=== PATIENT | female | born 1980 | race Two or more races ===

== ENCOUNTER 2016-05-16 09:42 | Emergency (ER) | payer OTHER ==
[2016-05-16 09:47] VITALS: BP 126/54; PULSE 90; TEMP 98.7; BMI 25.2
[2016-05-16] MEDS ORDERED: IBUPROFEN 600 MG TABLET (FP) PO ONE ×2 (10:04→10:08)
--- NOTE | 2016-05-16 10:08 | PDOC ---
History of Present Illness - General Chief Complaint: Sore Throat Stated Complaint: THROAT PAIN Time Seen by Provider: 05/16/16 09:46 History Source: Patient Exam Limitations: No Limitations - History of Present Illness Initial Comments: 05/16/16 10:04 36-year-old female otherwise healthy presents to the emergency department with complaints of sore throat and chills since Thursday. Patient states also irritating cough secondary to throat pain but denies any difficulty breathing, productive cough, neck stiffness, headache, abdominal pain, or nausea. 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 Timing/Duration: reports: other Severity: reports: mild Associated Symptoms: reports: fever/chills, sore throat Past History - Past Medical History Allergies/Adverse Reactions: Allergies Allergy/AdvReac Type Severity Reaction Status Date / Time codeine Allergy Verified 05/16/16 09:47 Home Medications: Ambulatory Orders Azithromycin [Zithromax 250mg Tablets -] 250 mg PO UTDICT #6 tab 05/16/16 Anemia: No Asthma: No Cancer: No Cardiac Disorders: No CVA: No COPD: No CHF: No Dementia: No Diabetes: No GI Disorders: Yes (COLITIS) Disorders: No HTN: No Hypercholesterolemia: No Liver Disease: No Seizures: No Thyroid Disease: No - Reproductive History LMP Normal: Yes Is Patient Now?: No - Psycho/Social/Smoking Cessation Hx Anxiety: No Suicidal Ideation: No Smoking Status: No Smoking History: Never smoked Have you smoked in the past 12 months: No Number of Cigarettes Smoked Daily: 0 Information on smoking cessation initiated: No Hx Alcohol Use: No Drug/Substance Use Hx: No Substance Use Type: None Hx Substance Use Treatment: No Patient Lives Alone: No Lives with/in: spouse/SO Review of Systems - Review of Systems Able to Perform ROS?: Yes Constitutional: Yes: Chills HEENTM: Yes: Throat Pain Respiratory: Yes: Cough Cardiac (ROS): No: Symptoms Reported ABD/GI: No: Symptoms Reported : No: Symptoms Reported Musculoskeletal: No: Symptoms Reported Integumentary: No: Symptoms Reported Neurological: No: Headache *Physical Exam - Vital Signs Last Vital Signs Temp Pulse Resp BP Pulse Ox 98.7 F 90 18 126/54 99 05/16/16 09:45 05/16/16 09:45 05/16/16 09:45 05/16/16 09:45 05/16/16 09:45 - Physical Exam General Appearance: Yes: Nourished, Appropriately Dressed. No: Apparent Distress HEENT: positive: EOMI, BRI, Normal Voice, TMs Normal, Tonsillar Exudate (2+ erythematous tonsils bilateral). negative: Nasal Congestion, Rhinorrhea, Sinus Tenderness Neck: positive: Supple. negative: Lymphadenopathy (R), Lymphadenopathy (L) Respiratory/Chest: positive: Lungs Clear, Normal Breath Sounds. negative: Respiratory Distress, Accessory Muscle Use Cardiovascular: positive: Regular Rhythm, Regular Rate. negative: Murmur Gastrointestinal/Abdominal: positive: Soft. negative: Tenderness Integumentary: positive: Normal Color, Warm, Moist Neurologic: positive: Motor Strength 5/5 (ambulatory) Medical Decision Making - Medical Decision Making 05/16/16 10:07 Patient with sore throat for the past 2 days. Patient on exam had 2+ exudative erythematous tonsils concerning for strep. Rapid strep was collected and Motrin was ordered. 05/16/16 10:53 Although rapid strep was negative I will give patient a prescription for azithromycin due to clinical presentation. Patient also recommended to take NSAIDs for pain and fever *DC/Admit/Observation/Transfer Diagnosis at time of Disposition: Sore throat - Discharge Dispostion Disposition: HOME Condition at time of disposition: Good - Prescriptions Prescriptions: Azithromycin [Zithromax 250mg Tablets -] 250 mg PO UTDICT #6 tab - Referrals Referrals: Perfecto Medina MD, MD [Primary Care Provider] - - Patient Instructions Printed Discharge Instructions: Sore Throat Additional Instructions: Although your strep test was negative, I will give you a prescription for azithromycin secondary to physical findings seen today in the ER. I recommend that you take Motrin or Tylenol for adequate fever and pain control. Also eat soft nonabrasive foods and drink plenty of water.
== END 2016-05-16 10:59 | disposition home or self-care (01) ==
LOC: JERFT 09:42
DX: J02.9 Acute pharyngitis, unspecified (principal)
CPT/HCPCS: 87070; 87077; 87430; 99281-25

== ENCOUNTER 2017-07-17 12:02 | Emergency (ER) | payer OTHER ==
[2017-07-17 12:07] VITALS: BP 123/62; PULSE 88; TEMP 98.1; BMI 24.6
--- NOTE | 2017-07-17 13:17 | PDOC ---
History of Present Illness - General Chief Complaint: Pain Stated Complaint: LT FOOT PAIN Time Seen by Provider: 07/17/17 12:21 History Source: Patient Exam Limitations: No Limitations - History of Present Illness Initial Comments: 07/17/17 13:14 CHIEF COMPLAINT: Left foot swelling HISTORY OF PRESENT ILLNESS: 37-year-old female who denies any significant medical history currently on no medication allergic to codeine. Patient presents with left foot swelling and pain. Patient reports was wearing new shoes that were high in [place] at a concert and wore them for 2 days, day after started with swelling. Denies any direct injury. There is a blister noted to dorsum of left great toe. No erythema, no bruising. No calf pain. No chest pain or shortness of breath. 07/17/17 14:16 Occurred: reports: yesterday Severity: Yes: moderate Lower Extremity Pain Location: left: foot Lower Ext. Injury Location - Specific Injury Location Foot: left foot pain, left foot swelling Extremity Pain Location - Extremity Pain Location Extremity Pain Locations: left: foot Past History - Past Medical History Allergies/Adverse Reactions: Allergies Allergy/AdvReac Type Severity Reaction Status Date / Time codeine Allergy Verified 07/17/17 12:04 Home Medications: Ambulatory Orders Ibuprofen [Motrin -] 600 mg PO QID #20 tablet 07/17/17 Anemia: No Asthma: No Cancer: No Cardiac Disorders: No CVA: No COPD: No CHF: No DVT: No Dementia: No Diabetes: No GI Disorders: Yes (COLITIS) Disorders: No HTN: No Hypercholesterolemia: No Liver Disease: No Seizures: No Thyroid Disease: No - Suicide/Smoking/Psychosocial Hx Smoking Status: No Smoking History: Never smoked Have you smoked in the past 12 months: No Number of Cigarettes Smoked Daily: 0 Hx Alcohol Use: No Drug/Substance Use Hx: No Substance Use Type: None Hx Substance Use Treatment: No Review of Systems - Review of Systems Constitutional: No: Symptoms Reported HEENTM: No: Symptoms Reported Respiratory: No: Symptoms reported Cardiac (ROS): No: Symptoms Reported ABD/GI: No: Symptoms Reported Musculoskeletal: Yes: Other (swelling to dorsum of left foot with no erythema or bruising.) Integumentary: Yes: Other (swelling to generalized left foot). No: Bruising, Erythema Neurological: No: Symptoms reported Hematologic/Lymphatic: No: Symptoms Reported All Other Systems: Reviewed and Negative *Physical Exam - Vital Signs Last Vital Signs Temp Pulse Resp BP Pulse Ox 98.1 F 88 18 123/62 100 07/17/17 12:06 07/17/17 12:06 07/17/17 12:06 07/17/17 12:06 07/17/17 12:06 - Physical Exam General Appearance: Yes: Appropriately Dressed. No: Apparent Distress HEENT: positive: Normal ENT Inspection, Normal Voice, Symmetrical Neck: positive: Trachea midline. negative: Tender, Tender lateral, Tender midline Respiratory/Chest: positive: Lungs Clear, Normal Breath Sounds. negative: Respiratory Distress, Accessory Muscle Use Cardiovascular: positive: Regular Rhythm, Regular Rate Gastrointestinal/Abdominal: positive: Normal Bowel Sounds, Soft. negative: Tender Lymphatic: negative: Adenopathy Musculoskeletal: positive: Other (swelling to dorsum of left foot, small blister noted to medial border of left great toe.) Extremity: positive: Normal Range of Motion, Pedal Edema, Swelling, Inflammation. negative: Erythema Integumentary: positive: Normal Color, Dry, Swelling. negative: Erythema, Ecchymosis, Bruising Neurologic: positive: Alert, Normal Mood/Affect, Normal Response, Motor Strength 5/5 ED Treatment Course - ADDITIONAL ORDERS Additional order review: Laboratory Results 07/17/17 12:45 Urine HCG, Qual Negative - RADIOLOGY Radiology Studies Ordered: Category Date Time Status ANKLE & FOOT-LEFT* [RAD] Stat Radiology 07/17/17 12:32 Ordered Medical Decision Making - Medical Decision Making 07/17/17 13:17 A/P: Patient with swelling to dorsum of left foot urine sent, patient sent to x-ray. Wet read x-rays negative for acute fracture, Will place patient in surgical shoe , Prakash wrap, ice and elevate when at rest, anti-inflammatories for pain and follow-up with podiatry in 1 week if pain persists *DC/Admit/Observation/Transfer Diagnosis at time of Disposition: Foot swelling - Discharge Dispostion Disposition: HOME Condition at time of disposition: Stable Admit: No - Prescriptions Prescriptions: Ibuprofen [Motrin -] 600 mg PO QID #20 tablet - Referrals Referrals: Claudio Collins MD [Staff Physician] - - Patient Instructions Additional Instructions: Ice and elevate when at rest Prakash wrap when ambulating, surgical shoe Follow-up with orthopedics or podiatry in 1 week if pain persists - Post Discharge Activity Forms/Work/School Notes: Back to Work
== END 2017-07-17 14:41 | disposition home or self-care (01) ==
LOC: JERFT 12:02
DX: R60.0 Localized edema (principal)
CPT/HCPCS: 73610-TC-LT-FY; 73630-TC-LT; 84703; 99282-25

== ENCOUNTER 2018-11-12 09:02 | Emergency (ER) | payer OTHER ==
[2018-11-12 09:11] VITALS: TEMP 98.9; BMI 25.0
--- NOTE | 2018-11-12 09:56 | PDOC ---
History of Present Illness - General Chief Complaint: Nausea/Vomiting Stated Complaint: NAUSEA/VOMITING Time Seen by Provider: 11/12/18 09:25 - History of Present Illness Initial Comments: Erwin Guzmán is a 38yo otherwise healthy woman who presents to the ED w/ frequent vomiting and PO intolerance since yesterday. She reports that on Thursday, she did not have much of an appetite, but she was not feeling sick. She went out for one drink with friends in the evening, and she had a little bit of an upset stomach in the morning yesterday. She thought it might be from going out, so she was trying to drink extra water, but she vomited up the water. She continued to not have any appetite. She has not had any fever, diarrhea, or known sick contacts. She notes that her LMP was on 10/02/18, about 6 weeks ago, and is currently sexually active. She denies any vaginal bleeding or discharge. Past History - Past Medical History Allergies/Adverse Reactions: Allergies Allergy/AdvReac Type Severity Reaction Status Date / Time codeine Allergy Verified 11/12/18 09:11 Home Medications: Ambulatory Orders Metoclopramide HCl 10 mg PO TID PRN #21 tablet 11/12/18 No122/Iron/Folic Acid [ Multi Tablet] 1 each PO DAILY #30 tablet 11/12/18 Anemia: No Asthma: No Cancer: No Cardiac Disorders: No CVA: No COPD: No CHF: No DVT: No Dementia: No Diabetes: No GI Disorders: Yes (COLITIS) Disorders: No HTN: No Hypercholesterolemia: No Liver Disease: No Seizures: No Thyroid Disease: No - Immunization History Immunization Up to Date: Yes - Suicide/Smoking/Psychosocial Hx Smoking Status: No Smoking History: Never smoked Have you smoked in the past 12 months: No Number of Cigarettes Smoked Daily: 0 Hx Alcohol Use: Yes (OCCASIONALLY) Drug/Substance Use Hx: No Substance Use Type: None Hx Substance Use Treatment: No Review of Systems - Review of Systems Comments:: General: No fevers, no chills, no weight or appetite change, no malaise HEENT: No changes in vision, no changes in hearing, no congestion, no sore throat CV: No chest pain, no palpitations, no LE edema Pulm: No SOB, no cough, no wheezing GI: +nausea/vomiting, no change in bowel habits, no melena : No frequency, no urgency, no dysuria Musc: No back pain, no joint swelling, no recent injury Skin: No rash, no lesions, no erythema Endo: No excessive thirst, no heat/cold intolerance Heme: No unusual bruising or bleeding, no swollen glands Neuro: No syncope, no numbness/tingling, no focal weakness Vasc: No claudication Psych: No recent change in mood, no SI or HI *Physical Exam - Vital Signs Last Vital Signs Temp Pulse Resp BP Pulse Ox 98.9 F 81 16 111/73 100 11/12/18 09:08 11/12/18 09:08 11/12/18 09:08 11/12/18 09:08 11/12/18 09:08 - Physical Exam Comments: General: Comfortable, no acute distress HEENT: PERRL, EOMI, MMM, voice normal, normal neck ROM, no LAD Cards: RRR, no murmur appreciated Pulm: Comfortable on room air, clear to auscultation bilaterally Abd: Soft, nontender, nondistended Ext: Atraumatic. No LE edema. ROM intact Vasc: Extremities WWP Skin: Normal color, no rashes or lesions Neuro: A&Ox3, CN grossly intact, normal speech, motor/sensory grossly intact and symmetric Psych: Mood appropriate to situation ED Treatment Course - LABORATORY CBC & Chemistry Diagram: 11/12/18 09:42 11/12/18 09:42 - ADDITIONAL ORDERS Additional order review: Laboratory Results 11/12/18 09:30 Urine HCG, Qual Positive Medical Decision Making - Medical Decision Making 11/12/18 09:56 Erwin Guzmán is a 38yo otherwise healthy woman who presents to the ED w/ frequent vomiting and PO intolerance since yesterday; she also notes that her LMP was about 6 weeks ago. - Gastritis v gastroenteritis, pancreatitis, cholecystitis. Possible - CBC, CMP, UA, Urine preg, lipase - IVF, pepcid, zofran 11/12/18 10:03 - Urine preg positive. Pt updated - Adding bHCG - Transvaginal US to confirm IUP 11/12/18 11:53 - Labs reviewed. No concerning abnormalities. bHCG [id number] - US confirms IUP at 5w6d, HR 110 - Reasessed, feeling significantly improved after meds. Will PO challenge and d/ c home with OB follow up if able to tolerate fluids. 11/12/18 12:46 - Able to drink juice w/o nausea or vomiting - Discussed home care, return precautions, and follow up with Ms Guzmán at length. Pt states understanding and agreement and feels comfortable going home. Discussed with Dr Ally Castrejon PGY2 *DC/Admit/Observation/Transfer Diagnosis at time of Disposition: Nausea and vomiting during prior to 22 weeks gestation - Discharge Dispostion Disposition: HOME Condition at time of disposition: Stable Decision to Admit order: No - Prescriptions Prescriptions: Metoclopramide HCl 10 mg PO TID PRN #21 tablet PRN Reason: Nausea And/Or Vomiting No122/Iron/Folic Acid [ Multi Tablet] 1 each PO DAILY #30 tablet - Referrals Referrals: Nile Schaefer MD [Staff Physician] - Selma Mariano DO [Staff Physician] - Tiana Brown MD [Staff Physician] - Rashad Etienne MD [Staff Physician] - Renata Farnsworth MD [Staff Physician] - [facility] [Provider Group] - Patient Instructions Printed Discharge Instructions: DI for -- Discomforts and Remedies Additional Instructions: Discharge Instructions: You were seen in the emergency department for nausea and vomiting. You were found to be , at an estimated 5 weeks 6 days. The was confirmed with an ultrasound. Your nausea improved with a medication called reglan (metoclopramide). Home Care and Follow Up: - You may use acetaminophen (Tylenol) 650-1000mg every 6 hours as needed for pain, discomfort, or fever. DO NOT take other pain medications. - You have been prescribed reglan, a nausea medication, that may be taken every 8 hours as needed for nausea or vomiting. It is strongly recommended that you try non-medication methods of controlling nausea first, though. These include eating first thing in the morning, small frequent meals and snacks, and avoiding foods that make you feel nauseated. - You have also been prescribed vitamins. It is extremely important to start taking these every day to help the develop normally. - You will need to schedule an initial appointment with an installer. You have been provided with several names to choose from. Call within the next week to schedule your appointment. - Seek immediate medical care if you have any persistent symptoms, you have frequent vomiting, you are unable to eat or drink, you become dehydrated, you have severe abdominal pain, or you have any other medical emergency. - Post Discharge Activity
[2018-11-12 10:06] LABS: BASO % 0.7 % (0-2.0); EOS % 1.5 % (0-4.5); HEMATOCRIT 35.7 % (32.4-45.2); HEMOGLOBIN 11.6 GM/dL (10.7-15.3); LYMPH % 30.1 % (8-40); MCH 23.9 pg (25.7-33.7); MCHC 32.4 g/dl (32.0-36.0); MEAN CELL VOLUME 73.9 fl (80-96); MEAN PLT VOLUME 7.6 fl (7.5-11.1); MONO % 7.9 % (3.8-10.2); NEUT % 59.8 % (42.8-82.8); PLATELET COUNT 287 K/MM3 (134-434); RBC 4.83 M/mm3 (3.60-5.2); RDW 13.6 % (11.6-15.6); WHITE BLOOD COUNT 6.9 K/mm3 (4.0-10.0)
[2018-11-12 10:11] LABS: URINE APPEARANCE CLEAR; URINE BILIRUBIN NEGATIVE (NEGATIVE); URINE COLOR YELLOW; URINE GLUCOSE (UA) NEGATIVE (NEGATIVE); URINE KETONE 4+ (NEGATIVE); URINE LEUK ESTERASE NEGATIVE (NEGATIVE); URINE NITRITE NEGATIVE (NEGATIVE); URINE PROTEIN TRACE (NEGATIVE)
[2018-11-12] MEDS ORDERED: ACETAMINOPHEN 1000 MG/100 ML VIAL (NON FORMULARY) IVPB ONE (10:28)
[2018-11-12] MEDS ORDERED: SODIUM CHLORIDE 1,000 ML IV STA (10:28)
[2018-11-12] MEDS ORDERED: METOCLOPRAMIDE HCL INJECTION 10 MG/2 ML VIAL IVPUSH ONE (10:28)
[2018-11-12] MEDS ORDERED: FAMOTIDINE 20 MG/50 ML IVPB 20 MG/50 ML MG IVPB ONE ×2 (10:28→10:36)
--- NOTE | 2018-11-12 10:33 | PDOC ---
Attending Attestation - Resident Resident Name: UmangkiranCrystal - ED Attending Attestation I have performed the following: I have examined & evaluated the patient, The case was reviewed & discussed with the resident, I agree w/resident's findings & plan, Exceptions are as noted - HPI HPI: 11/12/18 10:29 38 year old female with no past medical history presents with nausea and vomiting and tension headache since yesterday. Yesterday morning, started to develop several episodes of nausea and vomiting, nonbloody, nonbilious. No fevers, chills or diarrhea. Stated that she has had decreased appetite. Denies vaginal discharge or vaginal bleeding. Reports intermittent abdominal cramping. Did state that after vomiting, the patient started to develop a gradual tension headache that's moderate in intensity. Not thunderclapping or worst headache of life. No numbness, weakness. - Physicial Exam PE: 11/12/18 10:31 ADULT EXAM GENERAL: Awake, alert, and fully oriented, in no acute distress HEAD: No signs of trauma EYES: EOMI, sclera anicteric, conjunctiva clear ENT: Auricles normal inspection, hearing grossly normal, nares patent, +dry mucous membranes NECK: Normal ROM, supple, no lymphadenopathy, JVD, or masses LUNGS: Breath sounds equal, clear to auscultation bilaterally. No wheezes, and no crackles HEART: Regular rate and rhythm, normal S1 and S2, no murmurs, rubs or gallops ABDOMEN: Soft, nontender, No guarding, no rebound. No masses EXTREMITIES: Normal range of motion, no edema. No clubbing or cyanosis. No cords, erythema, or tenderness NEUROLOGICAL: Cranial nerves II through XII grossly intact. Normal speech, normal gait SKIN: Warm, Dry, normal turgor, no rashes or lesions noted. - Medical Decision Making 11/12/18 10:31 Vital Signs Temp Pulse Resp BP Pulse Ox 98.9 F 81 16 111/73 100 11/12/18 09:08 11/12/18 09:08 11/12/18 09:08 11/12/18 09:08 11/12/18 09:08 Patient is urine test positive. Her LMP is October 02, and she typically is regular. I suspect that she has hyperemesis gravidarum. Has no abdominal tenderness and no vaginal bleeding. I'm less concerned for ectopic or threatened . However, will obtain beta HCG and transvaginal ultrasound for the abdominal cramping. Urine shows 4+ ketones suggesting dehydration. Will give IV fluids and antie-emetics and reassess. 11/12/18 11:33 CBC, BMP 11/12/18 09:42 11/12/18 09:42 CMP Sodium 136 mmol/L (136-145) 11/12/18 09:42 Potassium 3.4 mmol/L (3.5-5.1) L 11/12/18 09:42 Chloride 104 mmol/L (98-107) 11/12/18 09:42 Carbon Dioxide 24 mmol/L (21-32) 11/12/18 09:42 Anion Gap 8 MMOL/L (8-16) 11/12/18 09:42 BUN 8.8 mg/dL (7-18) 11/12/18 09:42 Creatinine 0.7 mg/dL (0.55-1.3) 11/12/18 09:42 Est GFR (CKD-EPI)AfAm 126.49 11/12/18 09:42 Est GFR (CKD-EPI)NonAf 109.14 11/12/18 09:42 Random Glucose 126 mg/dL (74-106) H 11/12/18 09:42 Calcium 9.6 mg/dL (8.5-10.1) 11/12/18 09:42 Total Bilirubin 1.0 mg/dL (0.2-1) 11/12/18 09:42 AST 11 U/L (15-37) L 11/12/18 09:42 ALT 16 U/L (13-61) 11/12/18 09:42 Alkaline Phosphatase 47 U/L (45-117) 11/12/18 09:42 Total Protein 7.5 g/dl (6.4-8.2) 11/12/18 09:42 Albumin 4.2 g/dl (3.4-5.0) 11/12/18 09:42 Lipase 129 U/L (73-393) 11/12/18 09:42 Beta HCG, Quant 50356.6 mIU/ml 11/12/18 09:42 Urine Test Results Urine Color Yellow 11/12/18 09:30 Urine Appearance Clear 11/12/18 09:30 Urine pH 6.0 (5.0-8.0) 11/12/18 09:30 Ur Specific [place] 1.029 (1.010-1.035) 11/12/18 09:30 Urine Protein Trace (NEGATIVE) 11/12/18 09:30 Urine Glucose (UA) Negative (NEGATIVE) 11/12/18 09:30 Urine Ketones 4+ (NEGATIVE) H 11/12/18 09:30 Urine Blood Negative (NEGATIVE) 11/12/18 09:30 Urine Nitrite Negative (NEGATIVE) 11/12/18 09:30 Urine Bilirubin Negative (NEGATIVE) 11/12/18 09:30 Ur Leukocyte Esterase Negative (NEGATIVE) 11/12/18 09:30 11/12/18 11:46 Ultrasound shows single live IUP with no complications [id number]. If pt can tolerate PO and feeling better, will d/c with anti-emetic i.e. reglan. 11/12/18 13:24 Pt also has R sided ovarian cyst but no abdominal pain. Ovarian torsion precautions given. 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
[2018-11-12] MEDS ORDERED: METOCLOPRAMIDE HCL INJECTION 10 MG/2 ML VIAL ONE (10:35)
[2018-11-12 10:36] LABS: ALBUMIN 4.2 g/dl (3.4-5.0); BLOOD UREA NITROGEN 8.8 mg/dL (7-18); CALCIUM 9.6 mg/dL (8.5-10.1); CREATININE 0.7 mg/dL (0.55-1.3); POTASSIUM 3.4 mmol/L (3.5-5.1); TOT PROT 7.5 g/dl (6.4-8.2)
[2018-11-12] MEDS ORDERED: ACETAMINOPHEN INJECTION 100 ML IVPB ONE (10:36)
[2018-11-12 12:50] VITALS: BP 105/68; PULSE 68
== END 2018-11-12 13:32 | disposition home or self-care (01) ==
LOC: JER 09:02
PROC: 3E033NZ Introduction of Analgesics, Hypnotics, Sedatives into Peripheral Vein, Percutaneous Approach (ICD-10-PCS; principal; 2018-11-12)
PROC: 3E033GC Introduction of Other Therapeutic Substance into Peripheral Vein, Percutaneous Approach (ICD-10-PCS; 2018-11-12)
PROC: 3E0337Z Introduction of Electrolytic and Water Balance Substance into Peripheral Vein, Percutaneous Approach (ICD-10-PCS; 2018-11-12)
DX: O26.891 Other specified pregnancy related conditions, first trimester (principal); R11.2 Nausea with vomiting, unspecified; Z3A.01 Less than 8 weeks gestation of pregnancy
CPT/HCPCS: 36415; 76817-TC; 80053; 81003; 83690; 84702; 84703; 85025; 87086; 96361; 96365; 96375; 99284-25; J0131; J7030

== ENCOUNTER 2018-12-11 18:38 | Emergency (ER) | payer OTHER ==
[2018-12-11 18:43] VITALS: BP 115/70; PULSE 96; TEMP 98.6; BMI 25.0
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
[2018-12-11] MEDS ORDERED: ACETAMINOPHEN 500 MG TABLET (FP) PO ONE (19:08)
[2018-12-11] MEDS ORDERED: ACETAMINOPHEN 500 MG TABLET (FP) ONE (19:15)
== END 2018-12-11 19:00 | disposition home or self-care (01) ==
LOC: JERFT 18:38
DX: O99.89 Other specified diseases and conditions complicating pregnancy, childbirth and the puerperium (principal); H60.502 Unspecified acute noninfective otitis externa, left ear; Z3A.09 9 weeks gestation of pregnancy
CPT/HCPCS: 99281-25

== ENCOUNTER 2018-12-17 22:10 | Emergency (ER) | payer OTHER ==
[2018-12-17 22:33] VITALS: BMI 25.0
--- NOTE | 2018-12-18 01:07 | PDOC ---
Documentation entered by Maris Cooley SCRIBE, acting as scribe for Anika Phillips MD. Anika Phillips MD: This documentation has been prepared by the Yasir black Xhesika, SCRIBE, under my direction and personally reviewed by me in its entirety. I confirm that the documentation accurately reflects all work, treatment, procedures, and medical decision making performed by me. Attending Attestation - Resident Resident Name: Parth Lanier - ED Attending Attestation I have performed the following: I have examined & evaluated the patient, The case was reviewed & discussed with the resident, I agree w/resident's findings & plan - HPI HPI: 12/18/18 01:04 38 YOF with current at 11 weeks, , migraines presenting with palpitations, flushing across her body, headache, x 3-4 days tylenol last night w/o effect ECHEVERRIA similar to prior ECHEVERRIA, right fronto-temporal region, worse with light and sound +nausea no f/c, vomiting no trauma. no visual or hearing changes. no neurologic changes, dizziness. - Physicial Exam PE: 12/18/18 01:06 Agree with the resident's HPI and PE as documented in the electronic medical record. NAD, well appearing, EOMI, PERRL, MMM, nl conjunctiva, anicteric; neck supple. lungs clear, RRR, abdomen soft nontender. Back nontender. CHUNG x4, no focal neuro deficits. No peripheral edema. normal color for ethnicity, WWP. - Medical Decision Making 12/18/18 01:07 See HPI for details. Prior notes reviewed, including admissions, discharges and consultations. Vital signs reviewed, wnl. initial tachycardia, but improved. Vital Signs Temp Pulse Resp BP Pulse Ox 97.9 F 97 H 18 118/62 99 12/18/18 00:00 12/18/18 00:00 12/18/18 00:00 12/18/18 00:00 12/18/18 00:00 laboratory results and imaging reviewed, basic labs and lytes wnl, LFTs/lipase_ ED course: given analgesia, IVF, reassess no imaging indicated h/o c/w prior headache/migraine no AP, VB. well being check performed anticipate discharge once improved, stable condition. 12/18/18 02:29 12/18/18 17:51
[2018-12-18] MEDS ORDERED: ACETAMINOPHEN 1000 MG/100 ML VIAL (NON FORMULARY) IVPB ONE (01:11)
[2018-12-18] MEDS ORDERED: METOCLOPRAMIDE HCL INJECTION 10 MG/2 ML VIAL IVPB ONE (01:11)
[2018-12-18] MEDS ORDERED: SODIUM CHLORIDE 1,000 ML IV STA (01:11)
[2018-12-18] MEDS ORDERED: ACETAMINOPHEN INJECTION 100 ML IVPB ONE (01:20)
[2018-12-18] MEDS ORDERED: METOCLOPRAMIDE HCL INJECTION 10 MG/2 ML VIAL ONE (01:20)
--- NOTE | 2018-12-18 01:27 | PDOC ---
History of Present Illness - General Chief Complaint: Cold Symptoms Stated Complaint: FEVER Time Seen by Provider: 12/18/18 00:10 History Source: Patient Exam Limitations: No Limitations - History of Present Illness Initial Comments: 12/18/18 01:23 38 yo F 11 weeks gestational age ([place] 07/09/2020) with a hx of migraines presents to the emergency department with headache with palpitations and sensation of heat for 4 days. Per the patient, it was gradual onset of headache that is similar to quality of her previous migraines. Per the patient, she was prescribed chronic medication therapy for the migraines but denies taking them due to not wanting to take pills. Denies trauma. Describes the pain as throbbing , right forehead, worsens with light and sound, and has associative nausea but denies vomiting. Allergies: Codeine 12/18/18 01:43 Past History - Past Medical History Allergies/Adverse Reactions: Allergies Allergy/AdvReac Type Severity Reaction Status Date / Time codeine Allergy Verified 12/17/18 22:32 Home Medications: Ambulatory Orders No122/Iron/Folic Acid [ Multi Tablet] 1 each PO DAILY #30 tablet 11/12/18 Anemia: No Asthma: No Cancer: No Cardiac Disorders: No CVA: No COPD: No CHF: No DVT: No Dementia: No Diabetes: No GI Disorders: Yes (COLITIS) Disorders: No HTN: No Hypercholesterolemia: No Liver Disease: No Seizures: No Thyroid Disease: No - Reproductive History Is Patient Now?: Yes (#): 2 Para: 1 Spontaneous : 0 - Immunization History Immunization Up to Date: Yes - Suicide/Smoking/Psychosocial Hx Smoking Status: No Smoking History: Former smoker Have you smoked in the past 12 months: No Number of Cigarettes Smoked Daily: 0 Information on smoking cessation initiated: No Hx Alcohol Use: No Drug/Substance Use Hx: No Substance Use Type: None Hx Substance Use Treatment: No *Physical Exam - Vital Signs Last Vital Signs Temp Pulse Resp BP Pulse Ox 97.9 F 97 H 18 118/62 99 12/18/18 00:00 12/18/18 00:00 12/18/18 00:00 12/18/18 00:00 12/18/18 00:00 ED Treatment Course - LABORATORY CBC & Chemistry Diagram: 12/18/18 01:35 12/18/18 01:35 *DC/Admit/Observation/Transfer Diagnosis at time of Disposition: Headache - Discharge Dispostion Disposition: HOME Decision to Admit order: No - Referrals Referrals: Nathalia Latif MD [Staff Physician] - - Patient Instructions Printed Discharge Instructions: Migraine -- Adult, DI for Migraine Additional Instructions: You were seen in the emergency department for the evaluation of your headache. Please follow up with your OBGYN doctor within 1 week for follow up care. Please return to the emergency department if you have worsening symptoms or new concerning symptoms such as confusion, focal neurological deficits, and visual disturbance . Thank you. - Post Discharge Activity
[2018-12-18 01:46] LABS: BASO % 0.5 % (0-2.0); EOS % 2.3 % (0-4.5); HEMATOCRIT 33.9 % (32.4-45.2); HEMOGLOBIN 10.9 GM/dL (10.7-15.3); LYMPH % 27.9 % (8-40); MCH 23.5 pg (25.7-33.7); MCHC 32.1 g/dl (32.0-36.0); MEAN CELL VOLUME 73.4 fl (80-96); MEAN PLT VOLUME 7.8 fl (7.5-11.1); NEUT % 58.3 % (42.8-82.8); PLATELET COUNT 296 K/MM3 (134-434); RBC 4.62 M/mm3 (3.60-5.2); RDW 13.5 % (11.6-15.6); WHITE BLOOD COUNT 10.7 K/mm3 (4.0-10.0)
[2018-12-18 02:13] LABS: ALBUMIN 3.3 g/dl (3.4-5.0); BILIRUBIN,TOTAL 0.2 mg/dL (0.2-1); BLOOD UREA NITROGEN 8.7 mg/dL (7-18); CALCIUM 9.6 mg/dL (8.5-10.1); CREATININE 0.5 mg/dL (0.55-1.3); POTASSIUM 4.3 mmol/L (3.5-5.1); TOT PROT 6.5 g/dl (6.4-8.2)
[2018-12-18 04:18] VITALS: BP 101/53; PULSE 79; TEMP 98.6
== END 2018-12-18 05:50 | disposition home or self-care (01) ==
LOC: JER 22:10
PROC: 3E033NZ Introduction of Analgesics, Hypnotics, Sedatives into Peripheral Vein, Percutaneous Approach (ICD-10-PCS; principal; 2018-12-17)
PROC: 3E033GC Introduction of Other Therapeutic Substance into Peripheral Vein, Percutaneous Approach (ICD-10-PCS; 2018-12-17)
PROC: 3E033GC Introduction of Other Therapeutic Substance into Peripheral Vein, Percutaneous Approach (ICD-10-PCS; 2018-12-17)
DX: O99.89 Other specified diseases and conditions complicating pregnancy, childbirth and the puerperium (principal); R51 Headache; Z3A.11 11 weeks gestation of pregnancy
CPT/HCPCS: 36415; 80053; 85025; 96374; 96375; 99284-25; J0131; J7030

== ENCOUNTER 2019-05-23 20:37 | Emergency (ER) | payer OTHER ==
[2019-05-23 20:58] VITALS: BP 113/80; PULSE 70; TEMP 98; BMI 29.6
[2019-05-23] MEDS ORDERED: ACETAMINOPHEN 500 MG TABLET (FP) PO ONE (20:59)
--- NOTE | 2019-05-23 20:59 | PDOC ---
Rapid Medical Evaluation Chief Complaint: Headache Time Seen by Provider: 05/23/19 20:56 Medical Evaluation: Allergies Allergy/AdvReac Type Severity Reaction Status Date / Time codeine Allergy Verified 05/23/19 20:56 05/23/19 20:56 This patient had brief in-person evaluation in triage cc:headache x 2 days HPI:Patient reports fever, headache, bodyaches and vomiting x 2 days. States feeling malaise PE: NAD unlabored breathing heart s1s2 Oders: acetaminophen This patient will proceed to emergency department for further evaluation. 05/23/19 20:58 Discharge Disposition - Diagnosis Headache - Referrals - Patient Instructions - Post Discharge Activity
[2019-05-23] MEDS ORDERED: ACETAMINOPHEN 325 MG TABLET (FP) ONE (23:47)
== END 2019-05-24 00:30 | disposition left against medical advice (07) ==
LOC: JER 20:37
DX: R51 Headache (principal)
CPT/HCPCS: 99282-25